=== PATIENT | female | born 1945 | race Caucasian/White ===

== ENCOUNTER 2017-06-09 10:51 | Day surgery (SDC) | payer MEDICARE ==
[~2017-06-09] VITALS: Ht 165.1 cm; Wt 67.1 kg
--- NOTE | 2017-06-09 12:53 | Operative Note ---
Colonoscopy ([place]) Procedure date: 06/09/17 Date of : 49 Procedure:Colonoscopy Colonoscopy with cold biopsies Indications: Mrs. Echeverria is a 72-year-old female with chronic diarrhea which has improved. The patient had ischemic colitis in 2004. The patient had a colonoscopy in August 2006 showing diverticulosis but no polyps. Her last colonoscopy 4-5 years ago was normal except for diverticulosis. The patient was having more diarrhea and this has improved but she does have diarrhea on most days. She reports no abdominal pain, weight loss or rectal bleeding. Her father and paternal grandmother had colon cancer. Performing Provider: Adal Norman MD Referrring Provider: Ousmane Mcallister M.D. Sedation: MAC sedation Procedure: Prior to the procedure, a history and physical exam was performed, and patient medications and allergies were reviewed. The risks and benefits of the procedure and the sedation options and risks were discussed with the patient. All questions were answered and informed consent was obtained. Patient identification and proposed procedure were verified by the physician and the nurse. The patient was placed in a left lateral decubitus position. Throughout the procedure, the patient's blood pressure, pulse, and oxygen saturations were monitored continuously. Findings: On digital rectal examination there was normal rectal tone. There were no external hemorrhoids. The colonoscope was introduced through the anal canal to the rectum and advanced to the cecum. The ileocecal valve and appendiceal orifice were identified. The scope was advanced a short distance into the ileum which appeared grossly normal. The scope was then withdrawn into the colon. The cecum, ascending and transverse colon and mucosa were grossly normal. Cold biopsies were taken from the RIGHT colon to rule out microscopic colitis. There were extensive scattered diverticuli throughout the descending and sigmoid colon (LEFT colon). There was a single diminutive flat hyperplastic-appearing 5 mm polyp in the descending colon removed via cold biopsy. The rectum itself was normal. Upon retroflexion within the rectum there were grade 1 internal hemorrhoids. Impressions: 1. Diminutive hyperplastic-appearing descending colon polyp 2. Extensive left-sided diverticulosis 3. Grade 1 internal hemorrhoids Recommendations: I would recommend repeat screening/surveillance colonoscopy again in 5 years based upon her family history. I will follow-up the biopsies. The biopsies are indicative of microscopic colitis, I would consider budesonide/Entocort. The biopsies are negative, I would recommend fiber bulk (FiberCon) and probiotic therapy. I do feel that the nonsteroidal anti-inflammatory drug use may be resulting in worsening diarrhea if this is microscopic colitis. Complications: None EBL (ml): 0 at 4400
[2017-06-09 14:31] VITALS: BP 138/66
== END 2017-06-09 13:45 | disposition home or self-care (01) ==
LOC: SDC 10:51
PROVIDERS: Internal Medicine Gastroenterology
PROC: 0DBM8ZX Excision of Descending Colon, Via Natural or Artificial Opening Endoscopic, Diagnostic (ICD-10-PCS; 2017-06-09)
PROC: 0DBF8ZX Excision of Right Large Intestine, Via Natural or Artificial Opening Endoscopic, Diagnostic (ICD-10-PCS; principal; 2017-06-09 14:00)
DX: Z12.11 Encounter for screening for malignant neoplasm of colon (principal); Z80.0 Family history of malignant neoplasm of digestive organs; K63.5 Polyp of colon; K57.30 Diverticulosis of large intestine without perforation or abscess without bleeding; K64.0 First degree hemorrhoids; Z79.899 Other long term (current) drug therapy